=== PATIENT | male | born 1930 | race Caucasian/White ===

== ENCOUNTER 2021-09-09 11:24 | Inpatient (IN) | payer OTHER, BC ==
[~2021-09-09] VITALS: Ht 170.2 cm; Wt 77.0 kg
[~2021-09-09 11:24] MED LIST: AMLO-496; ASPI81TA35; CARV3.1240; HYDR25TA4; IBUP600T27; NITR0.4S31; OXYC325T10
[2021-09-09] MEDS ORDERED: SODIUM CHLORIDE 0.9% 1,000 ML IV ONE ×3 (11:45→19:30)
[2021-09-09 12:15] LABS: Basophils # (auto) 0.1 10 ^3/uL (0-0.2); Basophils % (auto) 0.5 % (0.0-2.0); Eosinophils # (auto) 0 10 ^3/uL (0-0.8); Hematocrit 45.5 % (41.0-53.0); Hemoglobin 15.8 g/dL (13.5-17.5); Lymphocytes # (auto) 1.3 10 ^3/uL (0.4-5.4); Lymphocytes % (auto) 12.1 % (10.0-50.0); Mean Corpuscular Hemoglobin 31.4 pg (28.0-32.0); Mean Corpuscular Hgb Conc. 34.8 g/dL (32.0-36.0); Mean Corpuscular Volume 90.3 fL (80.0-100.0); Monocytes # (auto) 1.5 10 ^3/uL (0-1.3); Monocytes % (auto) 13.2 % (0.0-12.0); Neutrophils # (auto) 8.2 10 ^3/uL (1.6-8.6); Neutrophils % (auto) 74.2 % (37.0-80.0); Nucleated Red Blood Cells % 0.1 %; Red Blood Cells 5.03 10^6/uL (4.5-5.90); Red Cell Distribution Width 13.6 % (11.8-14.3); White Blood Cell 11.1 10^3/uL (4.4-10.8)
[2021-09-09 12:49] LABS: BUN/Creatinine Ratio 26.4; Calcium 9.2 mg/dL (8.5-10.1)
[2021-09-09 12:56] LABS: Bilirubin, Total 0.4 mg/dL (0.2-1.0); Total Protein 7.8 g/dL (6.4-8.2)
[2021-09-09 13:37] LABS: Potassium 3.8 mmol/L (3.5-5.1)
[2021-09-09] MEDS ORDERED: ONDANSETRON HCL 4 MG/2 ML VIAL IV PRN (19:30)
[2021-09-09] MEDS ORDERED: ACETAMINOPHEN 325 MG TAB PO PRN ×2 (19:30)
[2021-09-09] MEDS ORDERED: PANTOPRAZOLE 40 MG/10 ML VIAL INJ IV ONE (19:30)
[2021-09-09] MEDS ORDERED: HYDROcodone-ACET 5/325MG TAB PO PRN (19:30)
[2021-09-09] MEDS: SODIUM CHLORIDE 0.9% 1,000 ML IV SCH (19:30)
[2021-09-09] MEDS ORDERED: MORPHINE SULFATE 4 MG/ML SYR/VIAL IV PRN (19:30)
[2021-09-09] MEDS ORDERED: metroNIDAZOLE 500MG/100ML 100 ML IV ONE (19:45)
[2021-09-09] MEDS ORDERED: NITROGLYCERIN 0.4 MG SL TAB SL SCH (19:45)
[2021-09-09] MEDS ORDERED: cefTRIAXone 1GM/50ML D5W 50 ML IV ONE (19:45)
[2021-09-09] MEDS ORDERED: hydrALAZINE HCL 20 MG/ML VL IV PRN (19:45)
[2021-09-09 20:18] LABS: Magnesium 2.4 mg/dL (1.6-2.6)
[2021-09-09 22:00] VITALS: BP 161/65
[2021-09-09 22:06] VITALS: BP 161/65
[2021-09-10] MEDS: HEPARIN SODIUM (PORCINE) 5000 UNITS/ML 1ML VIAL SC SCH ×2 (00:03→10:00)
[2021-09-10] MEDS ORDERED: LATA0.0019 EACHEYE (01:12)
[2021-09-10] MEDS ORDERED: DORZ1SOL6 (01:12)
[2021-09-10] MEDS ORDERED: HYDR25TA5 PO (01:12)
[2021-09-10] MEDS ORDERED: HYDR25TA87 PO (01:12)
[2021-09-10] MEDS ORDERED: CLOP75TA70 PO (01:12)
[2021-09-10] MEDS ORDERED: BRIM0.159 EACHEYE (01:12)
[2021-09-10 05:00] VITALS: BP 127/58
[2021-09-10] MEDS: SODIUM CHLORIDE 0.9% 1,000 ML IV SCH (05:28)
[2021-09-10 05:58] LABS: Basophils # (auto) 0.1 10 ^3/uL (0-0.2); Basophils % (auto) 0.6 % (0.0-2.0); Eosinophils # (auto) 0.1 10 ^3/uL (0-0.8); Eosinophils % (auto) 0.8 % (0.0-7.0); Hematocrit 37.5 % (41.0-53.0); Hemoglobin 13.1 g/dL (13.5-17.5); Lymphocytes % (auto) 22.2 % (10.0-50.0); Mean Corpuscular Hemoglobin 31.7 pg (28.0-32.0); Mean Corpuscular Hgb Conc. 34.9 g/dL (32.0-36.0); Mean Corpuscular Volume 90.8 fL (80.0-100.0); Monocytes # (auto) 1.3 10 ^3/uL (0-1.3); Neutrophils # (auto) 5.6 10 ^3/uL (1.6-8.6); Neutrophils % (auto) 62.4 % (37.0-80.0); Nucleated Red Blood Cells % 0.1 %; Red Blood Cells 4.13 10^6/uL (4.5-5.90); Red Cell Distribution Width 13.2 % (11.8-14.3)
[2021-09-10] MEDS ORDERED: metroNIDAZOLE 500MG/100ML 100 ML IV SCH (06:00)
[2021-09-10 06:04] LABS: Calcium 7.9 mg/dL (8.5-10.1)
[2021-09-10 06:09] LABS: Albumin 3.1 g/dL (3.4-5.0); BUN/Creatinine Ratio 31.9
[2021-09-10 06:12] LABS: Bilirubin, Total 0.4 mg/dL (0.2-1.0); Total Protein 6.1 g/dL (6.4-8.2)
[2021-09-10] MEDS ORDERED: cefTRIAXone 1GM/50ML D5W 50 ML IV SCH (09:00)
[2021-09-10 09:09] VITALS: BP 142/52
[2021-09-10] MEDS ORDERED: SODIUM CHLORIDE 0.9% 1,000 ML IV SCH (10:00)
[2021-09-10] MEDS ORDERED: PANTOPRAZOLE 40 MG/10 ML VIAL INJ IV SCH (10:00)
[2021-09-10 13:16] VITALS: BP 154/56
[2021-09-10] MEDS ORDERED: METR500T PO (15:05)
[2021-09-10 17:00] VITALS: BP 157/60
[2021-09-10] MEDS ORDERED: TAMSULOSIN HYDROCHLORIDE 0.4 MG CAP PO SCH (18:00)
== END 2021-09-10 17:40 | disposition home or self-care (01) | DRG 684 ==
LOC: ER 11:24 → EDBD 11:24 → OVERFLOW 19:20 → EAST 22:06
PROVIDERS: ADMIT Registered Nurse; ATTEND Internal Medicine
DX: N17.9 Acute kidney failure, unspecified (principal); N20.0 Calculus of kidney; J44.9 Chronic obstructive pulmonary disease, unspecified; I25.10 Atherosclerotic heart disease of native coronary artery without angina pectoris; E86.9 Volume depletion, unspecified; H91.90 Unspecified hearing loss, unspecified ear; I12.9 Hypertensive chronic kidney disease with stage 1 through stage 4 chronic kidney disease, or unspecified chronic kidney disease; N18.9 Chronic kidney disease, unspecified; N39.9 Disorder of urinary system, unspecified; R19.7 Diarrhea, unspecified; Z20.822 Contact with and (suspected) exposure to COVID-19; D72.829 Elevated white blood cell count, unspecified; N40.0 Benign prostatic hyperplasia without lower urinary tract symptoms; Z79.02 Long term (current) use of antithrombotics/antiplatelets; Z79.899 Other long term (current) drug therapy; Z82.49 Family history of ischemic heart disease and other diseases of the circulatory system; Z86.73 Personal history of transient ischemic attack (TIA), and cerebral infarction without residual deficits; Z88.5 Allergy status to narcotic agent; Z88.0 Allergy status to penicillin; Z88.2 Allergy status to sulfonamides
CPT/HCPCS: 36415; 71045; 74176; 76775; 80053; 80061; 83735; 84075; 84484; 85025; 87040; 93005; 96361; 96365; 96368; 96375; C9113; G0378; J0696; J3490